=== PATIENT | female | born 1975 | race Hispanic/Latino ===

== ENCOUNTER 2024-06-08 15:35 | Emergency (ER) | payer OTHER ==
[~2024-06-08] VITALS: Ht 152.4 cm; Wt 79.4 kg
[2024-06-08 15:38] VITALS: BP 126/79; PULSE 69; RESP 16; TEMP 97.7
--- NOTE | 2024-06-08 15:59 | ERN ---
General Chief Complaint: Knee Injury/Swelling Stated Complaint: RT KNEE PAIN Time Seen by MD: 15:38 Source: patient History of Present Illness Initial Comments Patient is a 48-year-old female coming in to be evaluated for right knee pain. Patient states that she does have a history of chronic knee pain and was once told she had fluid in her knee. She states that she was walking started having right knee pain decided to come in for further evaluation. Allergies: Coded Allergies: No Known Allergies (Unverified Allergy, Unknown, 06/08/24) Past Medical History Past Medical History: Diabetes-Type II Past Surgical History: Hysterectomy, Cholecystectomy ROS Dictation CONSTITUTIONAL: No chills, no fever, no weakness, no diaphoresis, no malaise. HEAD/FACE: No signs of trauma. EENT: No eye pain, no blurred vision, no tearing, no double vision, no ear pain, no ear discharge, no nose pain, no nasal congestion, no throat pain, no throat swelling, no mouth pain. RESPIRATORY: No cough, no orthopnea, no SOB, no stridor, no wheezing. CARDIOVASCULAR: No chest pain, no edema, no palpitations, no syncope. GASTROINTESTINAL/ABDOMINAL: No abdominal pain, no constipation, no diarrhea, no nausea, no vomiting. GENITOURINARY: No abnormal discharge, no dysuria, no frequent urination, no h ematuria. No complaints of pain in the genitals. MUSCULOSKELETAL: No back pain, no gout, joint pain, joint swelling, no muscle pain, no muscle stiffness, no neck pain. INTEGUMENTARY: No change in color, no change in hair/nails, no dryness, no lesion, no lumps, no rash. NEUROLOGICAL/PSYCH: No anxiety, not depressed, no emotional problem, no headache, no numbness, no pre-existing deficit, no history of seizures, no tremors, no weakness. HEMATOLOGIC/LYMPHATIC: Not anemic, no history of blood clots, no apparent bleeding, no bruising, glands not swollen. All Systems Negative, Except as Noted. Physical Exam Physical Exam Dictation VITAL SIGNS: Reviewed. GENERAL APPEARANCE: Alert, oriented x3, no acute distress, obese. HEAD AND FACE: Non-traumatic. EYES: PERRL, pink conjunctivas, eyelid no trauma, anterior chamber clear. EARS: Pinnas intact and no signs of trauma or erythema. Ear canals clear and no discharge. TMs no erythema. NOSE: No discharge, no bleeding. OROPHARYNX: Mouth normal, teeth no caries, tongue pink. Pharynx clear, no erythema. Tonsils no exudates, no abscesses noted. Mucous membrane moist. NECK: Supple, non-tender, no thyromegaly, no masses, no JVD, no bruits. BREAST: Deferred. CHEST: No tenderness, no crepitus, no paradoxical movement, no retractions. LUNGS: Clear, well-ventilated, symmetric, no rales, no wheezing, no rhonchi, no stridor, good breath sounds bilaterally. HEART: Regular rate, regular rhythm, no murmur, no gallops. VASCULAR: No peripheral edema. ABDOMEN: Soft, positive bowel sounds, nondistended, no guarding, nontender, no rebound, no masses no hepatomegaly, no splenomegaly, no Morrison's sign, no hernias. RECTAL: Deferred. GENITAL: Deferred. NEUROLOGICAL: Normal speech, gross motor function intact, gross sensory function intact. MUSCULOSKELETAL: Neck nontender, full range of motion, back nontender, full range of motion. EXTREMITIES: Nontender, full range of motion. Right knee pain SKIN: Color pink, dry, no turgor, no rash, no lacerations, no abrasions, no contusions. LYMPHATICS: Deferred. Results Laboratory and Microbiology Labs Reviewed?: Yes EKG/XRAY/US/CT/MRI X-RAY Comment [id number] [id number] IMAGING REPORT Signed PATIENT: HODAN FERRARO MR#: [id number] : 1975 SEX: F AGE: 48 LOCATION: [facility] ORDER [id number] STATUS: [facility] REPORT#: [id number] SERVICE 1540 REASON: pain ORDERING PHYSICIAN: YAMEL MIGUEL MD PROCEDURE: KNEE 3V RT - KNEE 3VWS RT Exam Type: KNEE 3VWS RT Clinical Information: pain Comparison: None Findings: The bone examination is unremarkable. No fractures or dislocations are seen. No radiopaque foreign bodies are noted. Joint effusion is suspected. IMPRESSION: Joint effusion. DICTATED BY: TOM ANTHONY MD DATE: 06/08/241702 ELECTRONICALLY SIGNED BY: TOM ANTHONY MD DATE: 06/08/241705 MDM MDM: Differential diagnosis: Knee strain, knee effusion, Rationale: Tests considered and ordered secondary to shared decision making include: Previous outside records reviewed: Old ER visits. Risk of complication and/or morbidity or mortality of patient management: None Medications-Per medication reconciliation Patient is a 48-year-old female coming in to be evaluated for knee pain. X-ray disclose mild joint effusion. Knee immobilizer will be placed I did advised her appropriate follow up with PCP and/or epic ambulatory specialists for ongoing evaluation and long-term management. ED Course Orders Procedure Category Date Status Time Knee 3vws Rt RAD 06/08/24 Resulted 15:40 Vital Signs Date Time Temp Pulse Resp B/P (MAP) Pulse Ox O2 Delivery O2 Flow Rate FiO2 06/08/24 15:38 97.7 69 16 126/79 99 Room Air 0 DX & DISP Disposition: Discharge Departure Impression: Primary Impression: Knee strain Additional Impression: Joint effusion Condition: Stable Scripts Naproxen (Naproxen) 500 Mg Tablet 1 TAB PO BID for pain for 7 Days, #14 TAB 0 Refills Prov: YAMEL MIGUEL MD 06/08/24 Additional Instructions: FOLLOW-UP WITH PRIMARY CARE PROVIDER IN 1 TO 2 DAYS. TAKE MEDICATIONS DIRECTED HERE IN THE EMERGENCY ROOM. OKAY TO CONTINUE HOME MEDICATIONS UNLESS OTHERWISE DISCUSSED DURING YOUR VISIT IN THE EMERGENCY ROOM TODAY. RETURN TO YOUR NEAREST EMERGENCY ROOM IF SYMPTOMS WORSEN OR IF THERE IS NO IMPROVEMENT. CALL 911 IF YOU NEED IMMEDIATE ASSISTANCE. TAKE TYLENOL [id number] NEEDED AND IF NO CONTRAINDICATIONS ARE PRESENT. INCREASE ORAL HYDRATION. A WOUND CULTURE OR URINE CULTURE WAS ORDERED HERE IN THE EMERGENCY ROOM DEPARTMENT PLEASE FOLLOW-UP WITH PRIMARY CARE PROVIDER AND ADVISE THEM TO GET REPEAT PORTS FROM OUR FACILITY. IF YOU HAD ANY JULIAN WRAP/SPLINTS THAT WERE APPLIED HERE, PLEASE DO NOT REMOVE THEM UNTIL YOU SEE YOUR PRIMARY CARE OR SPECIALTY. Referrals: Referrals: PEARL JOHN MD, LUIS A MD Time of Disposition: 17:21 YAMEL MIGUEL MD Jun 08, 2024 15:59
--- NOTE | 2024-06-08 17:06 | HMCIMG ---
Exam Type: KNEE 3VWS RT Clinical Information: pain Comparison: None Findings: The bone examination is unremarkable. No fractures or dislocations are seen. No radiopaque foreign bodies are noted. Joint effusion is suspected. IMPRESSION: Joint effusion.
[2024-06-08] MEDS ORDERED: NAPR-1194 PO (17:22)
[2024-06-08] MEDS: traMADol HCL 50 MG TABLET ONE (18:14)
[2024-06-08] MEDS: traMADol HCL 50 MG TABLET PO ONE (18:14)
== END 2024-06-08 18:58 | disposition home or self-care (01) ==
LOC: EDH 15:35
DX: S86.811A Strain of other muscle(s) and tendon(s) at lower leg level, right leg, initial encounter (principal); M25.40 Effusion, unspecified joint; E11.9 Type 2 diabetes mellitus without complications; Z90.49 Acquired absence of other specified parts of digestive tract; Z90.710 Acquired absence of both cervix and uterus; X58.XXXA Exposure to other specified factors, initial encounter; Y93.01 Activity, walking, marching and hiking; Y92.89 Other specified places as the place of occurrence of the external cause; Y99.8 Other external cause status
CPT/HCPCS: 29505; 73562; 99283